=== PATIENT | male | born 1995 ===

== ENCOUNTER 2020-03-03 17:18 | Emergency (ER) | payer BC ==
[2020-03-03] MEDS ORDERED: Sodium Chloride 0.9% 10 ML Syringe FLUSH PRN (17:48)
[2020-03-03] MEDS ORDERED: cefTRIAXone 1 GM in Premix Bag 1 BAG IV ONE (17:48)
[2020-03-03] MEDS ORDERED: Sodium Chloride 0.9% 2.5 ML Syringe FLUSH PRN (17:48)
--- NOTE | 2020-03-03 17:51 | EDM.PDOC ---
ED HPI GENERAL MEDICAL PROBLEM - General Chief Complaint: Bite:Animal, Insect Stated Complaint: BUG BITE Time Seen by Provider: 03/03/20 17:26 - History of Present Illness INITIAL COMMENTS - FREE TEXT/NARRATIVE: History of present illness: 24-year-old male presenting with right hand swelling and pain. Apparently 1 week ago he sustained some insect bites to the right hand, that got better and resolved, however several days ago he noticed some other apparent insect bites and over the last few days he has noticed the hand starting to swell. No fevers or chills. There is warmth and redness over the hand and distal forearm. He has not been on any antibiotics yet. Tetanus is up-to-date. Review of systems: As per history of present illness and below otherwise all systems reviewed and negative. Past medical history: As per history of present illness and as reviewed below otherwise noncontributory. Asthma, well controlled Surgical history: As per history of present illness and as reviewed below otherwise noncont ributory. Social history: No reported history of drug or alcohol abuse. No tobacco Family history: As per history of present illness and as reviewed below otherwise noncontributory. Physical exam: GEN: no acute distress, well appearing HEENT: Atraumatic, normocephalic, mucous membranes moist Neck: supple. Lungs: No respiratory distress. Heart: RRR Extremities: Erythema and swelling of the right hand, insect bites visible, no trauma seen, able to fully extend all fingers without difficulty, mild difficulty/limited range of motion when making a complete fist, full range of motion of the wrist, neurovascularly intact. Neuro: Awake, alert, oriented. Neuro Exam nonfocal. Skin: warm, dry, erythema over the dorsum and palmar surface of the hand and some extension of the erythema to the distal forearm, though the erythema does not appear to be continuous from the hand to the forearm, there is a space where it is not erythematous or tender over the wrist. Also additional insect bites on the distal forearm and this may be a second separate site of infection. The erythematous areas are warm to touch. Diagnostics: X-ray right hand, labs, cultures Therapeutics: IV Rocephin and Unasyn MDM: Impression: Right hand cellulitis Plan: Definitive disposition and diagnosis as appropriate pending reevaluation and review of above. right wrist Pain Score (Numeric/FACES): 3 - Related Data Allergies Allergy/AdvReac Type Severity Reaction Status Date / Time No Known Allergies Allergy Verified 03/03/20 17:29 Home Meds: Home Meds Budesonide/Formoterol [Symbicort 160-4.5 MCG] 1 puff INH BID 03/03/20 [History] Past Medical History HEENT History: Reports: None Cardiovascular History: Reports: None Respiratory History: Reports: Asthma Gastrointestinal History: Reports: None Genitourinary History: Reports: None Musculoskeletal History: Reports: None Neurological History: Reports: None Psychiatric History: Reports: None Endocrine/Metabolic History: Reports: None Hematologic History: Reports: None Immunologic History: Reports: None Oncologic (Cancer) History: Reports: None Dermatologic History: Reports: None - Infectious Disease History Infectious Disease History: Reports: None - Past Surgical History Head Surgeries/Procedures: Reports: None HEENT Surgical History: Reports: None Cardiovascular Surgical History: Reports: None Respiratory Surgical History: Reports: None GI Surgical History: Reports: None Male Surgical History: Reports: None Endocrine Surgical History: Reports: None Neurological Surgical History: Reports: None Musculoskeletal Surgical History: Reports: None Oncologic Surgical History: Reports: None Dermatological Surgical History: Reports: None Social & Family History - Family History Family Medical History: Noncontributory - Tobacco Use Smoking Status *Q: Never Smoker - Caffeine Use Caffeine Use: Reports: Coffee, Energy Drinks, Soda, Tea - Recreational Drug Use Recreational Drug Use: No ED ROS GENERAL - Review of Systems Review Of Systems: See Below (See HPI) ED EXAM, ANIMAL BITE - Physical Exam Exam: See Below (See HPI) Course - Vital Signs Text/Narrative:: Right hand infection after insect bite. Appears to be extending proximally. Patient is left-hand dominant. White blood cell count not elevated and patient is afebrile and appears to be in no acute distress. However given the degree of swelling and erythema and the rapidity with which the swelling has increased over the last couple days since the insect bite, I am concerned that the patient may have developing deep hand infection. As there is no hand surgeon on-call at this facility, I did discuss the case with the hand surgeon on-call at [facility], the nearest facility with hand coverage. I am concerned that although the patient has no severe deep space hand infections at this time, the patient may have a rapid decline and therefore would be safer in a facility that has hand coverage in case it would be necessary. IV antibiotic coverage with Rocephin and later broadened to Unasyn. Had blood culture sent. Last Recorded V/S: Last Vital Signs Temp 96.7 F L 03/03/20 17:29 Pulse 7 L 03/03/20 17:29 Resp 16 03/03/20 17:29 BP 128/88 03/03/20 17:29 Pulse Ox 97 03/03/20 17:29 - Orders/Labs/Meds Orders: Active Orders 24 hr Category Date Time Status CULTURE BLOOD [BC] Stat Lab 03/03/20 18:14 Received CULTURE BLOOD [BC] Stat Lab 03/03/20 18:25 Received Ampicillin/Sulbactam Na [Unasyn] 3 gm Med 03/03/20 19:02 Active Sodium Chloride 0.9% [Normal Saline] 100 ml IV ONETIME Sodium Chloride 0.9% [Saline Flush] Med 03/03/20 17:48 Active 10 ml FLUSH ASDIRECTED PRN Sodium Chloride 0.9% [Saline Flush] Med 03/03/20 17:48 Active 2.5 ml FLUSH ASDIRECTED PRN Blood Culture x2 Reflex Set [OM.PC] Stat Oth 03/03/20 17:49 Ordered Saline Lock Insert [OM.PC] Stat Oth 03/03/20 17:48 Ordered Medication Orders Ampicillin Sodium/Sulbactam (Sodium 3 gm/ Sodium Chloride) 100 mls @ 200 mls/hr IV ONETIME ONE Stop: 03/03/20 19:31 Sodium Chloride (Saline Flush) 10 ml FLUSH ASDIRECTED PRN PRN Reason: Keep Vein Open Sodium Chloride (Saline Flush) 2.5 ml FLUSH ASDIRECTED PRN PRN Reason: Keep Vein Open Labs: Laboratory Tests 03/03/20 03/03/20 Range/Units 18:14 18:14 WBC 9.23 (4.0-11.0) K/uL RBC 5.68 (4.50-5.90) M/uL Hgb 16.0 (13.0-17.0) g/dL Hct 47.0 (38.0-50.0) % MCV 82.7 (80.0-98.0) fL MCH 28.2 (27.0-32.0) pg MCHC 34.0 (31.0-37.0) g/dL RDW Std Deviation 38.7 (28.0-62.0) fl RDW Coeff of [place] 13 (11.0-15.0) % Plt Count 303 (150-400) K/uL MPV 9.70 (7.40-12.00) fL Neut % (Auto) 57.6 (48.0-80.0) % Lymph % (Auto) 25.9 (16.0-40.0) % [place] % (Auto) 8.2 (0.0-15.0) % Eos % (Auto) 8.1 H (0.0-7.0) % Baso % (Auto) 0.2 (0.0-1.5) % Neut # (Auto) 5.3 (1.4-5.7) K/uL Lymph # (Auto) 2.4 (0.6-2.4) K/uL [place] # (Auto) 0.8 (0.0-0.8) K/uL Eos # (Auto) 0.8 H (0.0-0.7) K/uL Baso # (Auto) 0.0 (0.0-0.1) K/uL Nucleated RBC % 0.0 /100WBC Nucleated RBCs # 0 K/uL Sodium 139 (136-148) mmol/L Potassium 3.9 (3.5-5.1) mmol/L Chloride 101 (98-107) mmol/L Carbon Dioxide 27.0 (21.0-32.0) mmol/L BUN 13 (7.0-18.0) mg/dL Creatinine 0.9 (0.8-1.3) mg/dL Est Cr Clr Drug Dosing 126.56 mL/min Estimated GFR (MDRD) > 60.0 ml/min Glucose 85 (74-106) mg/dL Calcium 9.2 (8.5-10.1) mg/dL Meds: Medications Generic Name Dose Route Start Last Admin Trade Name Freq PRN Reason Stop Dose Admin Ampicillin Sodium/Sulbactam 100 mls @ 200 mls/hr 03/03/20 19:02 Sodium 3 gm/ Sodium Chloride IV 03/03/20 19:31 ONETIME ONE Sodium Chloride 10 ml 03/03/20 17:48 Saline Flush FLUSH ASDIRECTED PRN Keep Vein Open Sodium Chloride 2.5 ml 03/03/20 17:48 Saline Flush FLUSH ASDIRECTED PRN Keep Vein Open Discontinued Medications Generic Name Dose Route Start Last Admin Trade Name Rafael PRN Reason Stop Dose Admin Ceftriaxone Sodium/Dextrose 1 50 mls @ 100 mls/hr 03/03/20 17:48 03/03/20 18:41 gm/ Premix IV 03/03/20 18:17 100 mls/hr ONETIME ONE Administration - Re-Assessments/Exams Free Text/Narrative Re-Assessment/Exam: 03/03/20 18:54 Based on physical exam findings, the patient will likely need to be admitted for IV antibiotics, as the infection is in the hand and spreading proximally up the arm, and may potentially worsen, I would prefer that the patient be transferred and admitted at a facility that does have hand coverage in case of the need for intervention. This was discussed with the patient who agrees with this plan and reports that he expected to need to be admitted for IV antibiotics in any case. He agrees with plan for transfer to [facility] if they will accept. Discussed case with hand surgeon at [facility], Dr. Larson, he agrees with plan for transfer, he request to extend antibiotic coverage to Unasyn and he will be available if necessary. 03/03/20 19:03 Discussed case with ER physician at [facility], Dr. Ray, accepts the admission. Departure - Departure Time of Disposition: 19:09 Disposition: DC/Tfer to [facility] Clinical Impression: Cellulitis of hand, right - Discharge Information Referrals: PCP,None [Primary Care Provider] - Forms: ED Department Discharge Sepsis Event Note (ED) - Evaluation Sepsis Screening Result: No Definite Risk - Focused Exam Vital Signs: Vital Signs Temp Pulse Resp BP Pulse Ox 03/03/20 17:29 96.7 F L 7 L 16 128/88 97 - My Orders Last 24 Hours: My Active Orders 03/03/20 17:48 Sodium Chloride 0.9% [Saline Flush] 10 ml FLUSH ASDIRECTED PRN Sodium Chloride 0.9% [Saline Flush] 2.5 ml FLUSH ASDIRECTED PRN Saline Lock Insert [OM.PC] Stat 03/03/20 17:49 Blood Culture x2 Reflex Set [OM.PC] Stat 03/03/20 18:14 CULTURE BLOOD [BC] Stat 03/03/20 18:25 CULTURE BLOOD [BC] Stat 03/03/20 19:02 Ampicillin/Sulbactam Na [Unasyn] 3 gm Sodium Chloride 0.9% [Normal Saline] 100 ml IV ONETIME - Assessment/Plan Last 24 Hours: My Active Orders 03/03/20 17:48 Sodium Chloride 0.9% [Saline Flush] 10 ml FLUSH ASDIRECTED PRN Sodium Chloride 0.9% [Saline Flush] 2.5 ml FLUSH ASDIRECTED PRN Saline Lock Insert [OM.PC] Stat 03/03/20 17:49 Blood Culture x2 Reflex Set [OM.PC] Stat 03/03/20 18:14 CULTURE BLOOD [BC] Stat 03/03/20 18:25 CULTURE BLOOD [BC] Stat 03/03/20 19:02 Ampicillin/Sulbactam Na [Unasyn] 3 gm Sodium Chloride 0.9% [Normal Saline] 100 ml IV ONETIME
[2020-03-03 18:36] LABS: BLOOD UREA NITROGEN,BUN 13 mg/dL (7.0-18.0); CHLORIDE,CL 101 mmol/L (98-107); GLUCOSE RANDOM 85 mg/dL (74-106); POTASSIUM,K 3.9 mmol/L (3.5-5.1); SODIUM,NA 139 mmol/L (136-148)
--- NOTE | 2020-03-03 19:00 | CR ---
Right hand: 3 views of the right hand were obtained. Comparison: No prior hand study. Diffuse soft tissue swelling is identified. No acute fracture, dislocation or other bony abnormality is appreciated. Impression: 1. Diffuse soft tissue swelling. 2. No acute bony abnormality is appreciated on right hand exam. Diagnostic code #3 This report was dictated in MDT
[2020-03-03] MEDS ORDERED: Ampicillin/Sulbactam Na 3 GM in Sodium Chloride 0.9% 100 ML IV ONE (19:02)
== END 2020-03-03 20:20 ==
LOC: MW.ED 17:18
DX: L03.113 Cellulitis of right upper limb (principal); J45.909 Unspecified asthma, uncomplicated; Z79.899 Other long term (current) drug therapy
CPT/HCPCS: 36415; 73130-26-RT; 73130-RT; 80048; 85025; 87040; 96365; 96367; 99284; 99284-25; J0295; J0696; J7050